=== PATIENT | male | born 1995 | race Caucasian/White ===

== ENCOUNTER 2021-07-19 19:04 | Emergency (ER) | payer SELFPAY ==
[2021-07-19 19:23] VITALS: BP 131/83; PULSE 115; RESP 18; TEMP 36.9; O2SAT 99; BMI 25.7
--- NOTE | 2021-07-19 19:27 | XR_ITS ---
PROCEDURE INFORMATION: Exam: XR Left Knee Exam date and time: 07/19/2021 7:27 PM Age: 25 years old Clinical indication: Pain; Knee; Left TECHNIQUE: Imaging protocol: XR Left knee. Views: 3 views. COMPARISON: No relevant prior studies available. FINDINGS: Bones/joints: Normal. Soft tissues: Normal. IMPRESSION: No acute findings.
[2021-07-19 20:11] VITALS: BP 131/83; PULSE 115; RESP 18; TEMP 36.9; O2SAT 99; BMI 25.7
[2021-07-19 20:48] VITALS: BP 131/83; PULSE 115; RESP 18; TEMP 36.9; O2SAT 99
--- NOTE | 2021-07-19 21:04 | HMH.EDUTC ---
[facility] [place] Impression: Other instability, left knee Left knee injury Qualifiers: Encounter type: initial encounter Qualified Code(s): S89.92XA - Unspecified injury of left lower leg, initial encounter Disposition: Home, Self-Care Condition on Discharge: Good Instructions: How to Use Crutches, DI for Knee Sprain, How to Use a Knee Immobilizer Additional Instructions: Rest the extremity, Elevate the extremity as tolerated while you are resting. Take ibuprofen for pain. I sent in a prescription to your pharmacy. Follow up with Dr. Webster (orthopedics). Your x-ray was normal, but with your symptoms lasting this long there is likely a soft tissue injury like a meniscus injury or ligament injury. I put in a referral but you need to call his office and schedule an appointment. Follow up with your regular doctor. GO TO THE ER FOR ANY WORSENING SYMPTOMS Prescriptions: Ibuprofen [Ibuprofen 800mg Tablet] 800 mg PO Q8HP PRN #30 tab PRN Reason: Moderate Pain Transmission Status: Received by [id number] Referrals: ProviderLeyda MD [Primary Care Provider] - Saul Webster MD [Staff Physician] - Forms: Work/School Release Time of Disposition: 21:18 Medical Decision Making - Medical Records Medical records reviewed: No: I reviewed the patient's medical records. - Jay Inquiry Pt receiving controlled substance: No Vital Signs: 07/19/21 19:23 07/19/21 20:11 07/19/21 20:48 Temperature 98.4 F 98.4 F 98.4 F Temperature Source Oral Oral Pulse Rate 115 H Pulse Rate [Right] 115 H 115 H Respiratory Rate 18 18 18 Blood Pressure 131/83 Blood Pressure [Right Arm] 131/83 131/83 Blood Pressure Mean [Right Arm] 99 99 Blood Pressure Source [Right Arm] Automatic Cuff Blood Pressure Position [Right Arm] Sitting 02 Sat by Pulse Oximetry 99 99 Oxygen Delivery Method Room Air - Radiology Data #1 Image(s): Knee Image Reviewed: Yes I reviewed the patient's radiology image, Yes I have reviewed radiologist's interpretation Preliminary Findings: Normal/NAD, No Fracture Seen PROCEDURE INFORMATION: Exam: XR Left Knee Exam date and time: 07/19/2021 7:27 PM Age: 25 years old Clinical indication: Pain; Knee; Left TECHNIQUE: Imaging protocol: XR Left knee. Views: 3 views. COMPARISON: No relevant prior studies available. FINDINGS: Bones/joints: Normal. Soft tissues: Normal. IMPRESSION: No acute findings. [facility] [place] HPI - General Stated complaint: AO 06/21 injured L knee Time Seen by Provider: 07/19/21 21:04 Mode of Arrival: Ambulatory Source of Information: Patient Limitations: No Limitations Description of Symptoms (Recalled from Triage Doc. by RN): PATIENT C/O LEFT KNEE PAIN AFTER FALLING A MONTH AGO HEENT Symptoms (Recalled from RN notes): No Resp Symptoms (Recalled from RN notes): No Skin Symptoms (Recalled from RN notes): No MS Symptoms (Recalled from RN notes): Yes Functional Status (Recalled from RN notes): WNL - History of Present Illness Provider Complaint: He states that approx 1 month ago he fell and twisted his left knee. Since then he has had left knee pain and swelling. The symptoms wax and wane, but they never get completely better. His knee has felt unstable at times also. - Related Data Previous Rx's Medication Instructions Recorded Ibuprofen [Ibuprofen 800mg 800 mg PO Q8HP PRN #30 tab 07/19/21 Tablet] Allergies Allergy/AdvReac Type Severity Reaction Status Date / Time No Known Allergies Allergy Verified 07/19/21 20:14 - Worker's Comp Is this a Worker's Comp case?: No [facility] History - Hepatitis A Screen Drug use history?: No High risk sexual behaviors?: No History of sexually transmitted infection?: No Currently employed?: No Childcare worker?: No Do you have indoor plumbing?: Yes Do you have electricity?: Yes Atte
== END 2021-07-19 21:26 | disposition home or self-care (01) ==
PROVIDERS: Emergency Provider Nurse Practitioner Family
DX: S89.92XA Unspecified injury of left lower leg, initial encounter (principal); W01.0XXA Fall on same level from slipping, tripping and stumbling without subsequent striking against object, initial encounter; Y92.019 Unspecified place in single-family (private) house as the place of occurrence of the external cause
CPT/HCPCS: 29505; 73562; 99212; G0463

== ENCOUNTER 2025-02-25 17:44 | Emergency (ER) | payer SELFPAY ==
[2025-02-25] VITALS (13 sets, daily range): BP systolic 136–192; BP diastolic 82–104; PULSE 72–102; RESP 16–18; TEMP 36.8; O2SAT 95–98; BMI 32.1
--- NOTE | 2025-02-25 18:23 | ED_ITS ---
<Statement entered by Ajit Leon MD - 02/25/25 23:33> Ajit Leon MD: I was consulted by the SILAS, and we discussed the complexity of the problems being addressed. I approved the treatment and management plan for this patient's care in the emergency department, thus performing a substantive portion of the medical decision making. Discharge Plan Disposition Patient Disposition: Left Against Medical Advice Condition: Fair Prescriptions Prescriptions: New doxycycline hyclate 100 mg capsule 100 mg PO BID 10 Days Qty: 20 0RF No Action ibuprofen 800 MG tablet 800 mg PO Q8HP PRN (Reason: Moderate Pain) Qty: 30 0RF Referrals Follow up/Referrals: Live Vines MD [Staff Physician, Urology] - See instructions Dev Vaca DO [Staff Physician, Family Practice] - See instructions Provider,MD Leyda [Primary Care Provider, Medical] - See instructions Activity Restrictions/Add. Instructions Additional Instructions/Restrictions: Please return to the emergency department with any worsening signs or symptoms. Please follow-up with primary care doctor or urologist for ultrasound of your scrotum in the upcoming days. Please take your antibiotic medication as prescribed. Clinical Impressions Clinical Impression: Inguinal lymphadenopathy, Hydrocele in adult Instructions Patient Instructions: DI for Lymphadenopathy, DI for Hydrocele in Adults Print Language Print Language: Thai Discharge ED Provider: Ajit Leon General Adult HPI General Chief complaint: PAIN Stated complaint: knot in groin area ,fever,sore Time Seen by Provider: 02/25/25 18:23 Mode of Arrival: Ambulatory Source of Information: Patient Description of Symptoms (Recalled from ER Triage Doc. by RN): Pt noticed pain in his groin area yesterday and felt a lump on the left side of his groin. History of Present Illness HPI narrative: 29-year-old male presents the emergency department accompanied by significant other for left inguinal pain, concern for area that is swollen , patient states he noticed this 2 days ago when he was in the shower , denies any trauma or injury per history, patient described it is sore, denies any redness around the area, does state that he does have some pain/pressure when he coughs , denies any fever, does admit to subjective chills, denies any chest pain shortness of breath, nausea vomiting constipation diarrhea no urinary type symptomatology, no urethral discharge, no redness genitourinary area, the opposite side is unaffected, denies any new sexual contacts or risky sexual behaviors, no testicular pain or swelling. Patient is a current everyday smoker (vapes), admits to occasional marijuana use and occasional alcohol use. Other past medical history consistent with GERD initial triage vitals noted for tachycardia at 102 bpm otherwise unremarkable. Please note that above description of symptoms, in this electronic medical record under categorization of recalled from ER triage doctor by RN are reflective of an initial nursing assessment, however, is not reflective of my full history and physical exam that was personally taken and clarified. Consequentially, this preceding description of symptoms, which may include the patient's categorized chief complaint in the EMR, do not reflect my personal clinical impression, and the ultimate description of history of present illness and patient stated complaints should be deferred to this section of the note. Unless stated otherwise or congruent with this section of the note, additional signs, symptoms, or incongruence should be interpreted as inaccurate with my clinical impression. Onset (ago): day(s) Related Data Previous Rx's ?Medication ?Instructions ?Recorded ibuprofen 800 mg tablet 800 mg PO Q8HP PRN Moderate Pain 07/19/21 #30 tabs doxycycline hyclate 100 mg capsule 100 mg PO BID 10 da ys #20 caps 02/25/25 Allergies Allergy/AdvReac Type Severity Reaction Status Date / Time No Known Allergies Allergy Verified 07/23/21 09:42 [facility] Disclaimer: The information contained in this section may have been updated after the patient was seen, as this information can be updated by other users. Social History Smoking Status: Current every day smoker alcohol intake: never current occupational status: employed Travel in the last 8 weeks?: None Have you lived/traveled outside [place] in past 30 days?: No Contact w/someone who lives/traveled outside [place] past 30 days?: No Exposure to someone with infectious disease in past 14 days?: No Do you have a fever (greater than 100.4 F or 38 C)?: No Have you tested positive for COVID-19?: No Exposed to someone with COVID-19 in past 14 days?: No Do you have a sore throat?: No Do you have a cough?: No Do you have any weakness?: No Do you have any diarrhea?: No Are you experiencing any unusual bleeding?: No Do you have any muscle aches/pain?: No Do you have any abdominal pain?: No Are you experiencing loss of taste or smell?: No Other Medical History Have you received the Pneumonia Vaccine: No ROS Obtained: Yes All systems reviewed & no additional complaints except as documented Physical Exam General General appearance: alert and in no apparent distress Head Head exam: atraumatic and normocephalic Eye Eye exam: Present PERRL and EOMI ENT ENT exam: Present mucous membranes moist Neck Neck exam: Present normal inspection Chest Chest inspection: Present normal inspection and symmetric chest wall rise Respiratory Respiratory exam: Present normal lung sounds bilaterally; Absent respiratory distress Cardiovascular Cardiovascular exam: Present regular rate and normal rhythm Abdominal Exam Abdominal exam: Present soft; Absent tenderness, guarding or rebound exam: Present normal testicular lie and other (Lymphadenopathy/prominent area in the inguinal lymphatic chain, with minimal pain palpation); Absent testicular tenderness, urethral discharge or scrotal swelling Extremities Exam Extremities exam: Present normal inspection Neurological Exam Neurological exam: Present alert and oriented X3 Psychiatric Psychiatric exam: Present normal affect Skin Skin exam: Present warm and dry Lymphatic Lymphatic Findings: L inguinal node tender and L inguinal node enlarged Medical Decision Making Medical Records Medical records reviewed: Yes I reviewed the patient's medical records. Screening: Per USPSTF and CDC recommendations, given the prevalence of disease in our region, it is our hospital?s policy to screen for HIV and viral Hepatitis for all patients aged 18 and over and those with ongoing risk factors. Jay Inquiry Pt receiving controlled substance: No Jay was queried for this patient: No Vital Signs: 02/25/25 18:06 02/25/25 19:19 02/25/25 19:30 Temperature 98.3 F Temperature Source Oral Pulse Rate 92 H 81 Pulse Rate [Right] 102 H Respiratory Rate 18 Blood Pressure Blood Pressure [Right Arm] 192/103 H Blood Pressure Mean Blood Pressure Mean [Right Arm] 132 Blood Pressure Source [Right Arm] Manual Cuff/ Doppler Blood Pressure Position [Right Arm] Sitting 02 Sat by Pulse Oximetry 98 95 96 Oxygen Delivery Method Room Air 02/25/25 19:30 02/25/25 19:45 02/25/25 20:00 Temperature Temperature Source Pulse Rate 85 82 Pulse Rate [Right] Respiratory Rate Blood Pressure 137/97 H Blood Pressure [Right Arm] Blood Pressure Mean 105 Blood Pressure Mean [Right Arm] Blood Pressure Source [Right Arm] Blood Pressure Position [Right Arm] 02 Sat by Pulse Oximetry 96 97 Oxygen Delivery Method 02/25/25 20:01 02/25/25 20:01 02/25/25 20:15 Temperature Temperature Source Pulse Rate 77 89 Pulse Rate [Right] Respiratory Rate Blood Pressure 145/93 H Blood Pressure [Right Arm] Blood Pressure Mean 101 Blood Pressure Mean [Right Arm] Blood Pressure Source [Right Arm] Blood Pressure Position [Right Arm] 02 Sat by Pulse Oximetry 97 96 Oxygen Delivery Method 02/25/25 20:30 02/25/25 20:31 02/25/25 20:31 Temperature Temperature Source Pulse Rate 87 88 Pulse Rate [Right] Respiratory Rate Blood Pressure 136/82 Blood Pressure [Right Arm] Blood Pressure Mean 100 Blood Pressure Mean [Right Arm] Blood Pressure Source [Right Arm] Blood Pressure Position [Right Arm] 02 Sat by Pulse Oximetry 95 95 Oxygen Delivery Method 02/25/25 20:45 Temperature Temperature Source Pulse Rate 72 Pulse Rate [Right] Respiratory Rate Blood Pressure Blood Pressure [Right Arm] Blood Pressure Mean Blood Pressure Mean [Right Arm] Blood Pressure Source [Right Arm] Blood Pressure Position [Right Arm] 02 Sat by Pulse Oximetry 97 Oxygen Delivery Method Lab Data Lab results reviewed: Yes I reviewed the patient's lab results. Lab Results 02/25/25 18:35: WBC 9.6, RBC 5.14, Hgb 16.0, Hct 45.1, MCV 87.7, MCH 31.1, MCHC 35.5 H, RDW 12.1, Plt Count 377, MPV 9.3, Neut % (Auto) 64.6, Lymph % (Auto) 23.3, [place] % (Auto) 10.6 H, Eos % (Auto) 0.6, Baso % (Auto) 0.6, Neut # (Auto) 6.2, Lymph # (Auto) 2.2, [place] # (Auto) 1.0, Eos # (Auto) 0.1, Baso # (Auto) 0.1, Sodium 138, Potassium 3.5, Chloride 100, Carbon Dioxide 26, Anion Gap 15.5 H, BUN 11, Creatinine 1.00, Estimated Creat Clear 172, Estimated GFR 87, Est GFR ( Amer) 105, Glucose 86, Calcium 9.4, Total Bilirubin 0.8, AST 56, ALT 55, Alkaline Phosphatase 101, Total Protein 7.9, Albumin 4.4, Globulin 3.5 H, Albumin/Globulin Ratio 1.3 02/25/25 19:37: Urine Color Yellow, Urine Appearance Clear, Urine pH 6.5, Ur Specific [place] <= 1.005, Urine Protein Negative, Urine Glucose (UA) Negative, Urine Ketones Negative, Urine Blood Negative, Urine Nitrate Negative, Urine Bilirubin Negative, Urine Urobilinogen 0.2, Ur Leukocyte Esterase Negative, Urine RBC None, Urine WBC None, Ur Squamous Epith Cells None, Urine Bacteria None 02/25/25 18:35 02/25/25 18:35 Orders (Tests/Meds): ED MEDICATIONS Generic Name Dose Route Start Last Admin Trade Name Freq PRN Reason Stop Dose Admin Sodium Chloride 10 ml 02/25/25 18:48 02/25/25 18:49 Sodium Chloride 0.9% 10ml Syr (Rad Only) IV 03/27/25 18:47 10 ml NEEDED PRN Administration Maintain IV Site Discontinued Medications Generic Name Dose Route Start Last Admin Trade Name Freq PRN Reason Stop Dose Admin Ceftriaxone Sodium 500 mg 02/25/25 21:19 Ceftriaxone 500mg Vial IM 02/25/25 21:20 ONCE ONE Iopamidol 75 ml 02/25/25 18:48 02/25/25 18:49 Iopamidol-370 (76%);100ml Bottle IV 02/25/25 18:49 75 ml ONCE ONE Administration Lidocaine HCl 0 ml 02/25/25 21:19 Lidocaine 1% 5ml Pf Vial IM 02/25/25 21:20 ONCE ONE ORDERS Category Date Time Status CT abdomen pelvis w con Stat Cat Scan 02/25/25 18:28 Completed Complete Blood Count Auto Diff Stat Lab 02/25/25 18:35 Completed Comprehensive Metabolic Panel Stat Lab 02/25/25 18:35 Completed Urinalysis and Microscopic Stat Lab 02/25/25 19:37 Completed Urine Chlam/Gono/Trich ([facility]) Stat Lab 02/25/25 19:37 Received US scrotum [US Testicular] Stat Ultrasound 02/25/25 20:47 Ordered Medical Decision Narrative: 29-year-old male presents to the emergency department with left inguinal pain and swelling for 2 days, differential diagnose include but not limited to, lymphadenitis, inguinal lymphadenopathy, inguinal hernia, infection among others. I discussed this patient's case with the attending physician Dr. Leon Will obtain basic laboratory studies, CT ab pelvis with contrast, and urinalysis for further evaluation/characterization, gonorrhea chlamydia, trichomonas nucleic amplification. CBC is unremarkable CMP is unremarkable Urinalysis is unremarkable I reviewed the patient's CT abdomen pelvis with contrast along with corresponding radiologic report, multiple left inguinal and left iliac chain enlarged inflammatory nodes, largest measures 2.4 cm in diameter, findings could be related to infectious or inflammatory regional process versus neoplastic process recommend further evaluation scrotum with ultrasound small left hydrocele attention on recommended scrotal ultrasound. Thus will obtain scrotal ultrasound. I was notified by nursing staff at approximately 9:15 PM that the patient is refusing scrotal ultrasound and would just like to leave AGAINST MEDICAL ADVICE. I was over to talk to patient and at the bedside, patient tells me I am just tired of all this morning go home . I discussed with him all risks of leaving AGAINST MEDICAL ADVICE and refusing further testing such as missing critical diagnoses to include malignancy infection among others. Patient voiced understanding and agreement with the current plan to leave AGAINST MEDICAL ADVICE, both patient and family ember GCS 15 alert oriented. Will treat the patient prophylactically for lymphadenitis, with 500 mg IM ceftriaxone and 100 mg p.o. doxycycline twice daily for 10 days. Patient voiced understanding and agreement with current treatment plan/plan to leave AGAINST MEDICAL ADVICE. Patient was given strict ED return precautions and was recommend the patient get follow-up with scrotal ultrasound as outpatient. Patient once again voiced understanding. Critical Care Critical Care Time Critical Care Time: No
--- NOTE | 2025-02-25 18:28 | CT_ITS ---
PROCEDURE INFORMATION: Exam: CT Abdomen And Pelvis With Contrast Exam date and time: 02/25/2025 6:53 PM Age: 29 years old Clinical indication: Pain; Other: Groin; Additional info: Left inguinal/groin pain/swelling TECHNIQUE: Imaging protocol: Computed tomography of the abdomen and pelvis with contrast. Radiation optimization: All CT scans at this facility use at least one of these dose optimization techniques: automated exposure control; mA and/or kV adjustment per patient size (includes targeted exams where dose is matched to clinical indication); or iterative reconstruction. Contrast material: ISOVUE; Contrast volume: 75 ml; Contrast route: IV; COMPARISON: No relevant prior studies available. FINDINGS: Liver: Diffuse hypoattenuation of the liver compatible with mild hepatic steatosis. Gallbladder and biliary ducts: Normal. No calcified stones. No ductal dilation. Pancreas: Normal. No ductal dilation. Spleen: Normal. No splenomegaly. Adrenal glands: Normal. No mass. Kidneys and ureters: Normal. No hydronephrosis. Stomach and bowel: Unremarkable. No obstruction. No mucosal thickening. Appendix: No evidence of appendicitis. Intraperitoneal space: Unremarkable. No free air. No significant fluid collection. Vasculature: Unremarkable. No abdominal aortic aneurysm. Lymph nodes: Multiple left inguinal and left iliac chain enlarged inflammatory nodes largest measures 2.4 cm in diameter. Urinary bladder: Unremarkable as visualized. Reproductive: Small left hydrocele. Bones/joints: Moderate loss of intervertebral disc space with degenerative changes involving L5-S1. Soft tissues: Normal. IMPRESSION: 1. Multiple left inguinal and left iliac chain enlarged inflammatory nodes largest measures 2.4 cm in diameter. Findings could be related to infectious or inflammatory regional process versus neoplastic process. Recommend further evaluation of the scrotum with ultrasound. 2. Small left hydrocele. Attention on recommended scrotal ultrasound.
[2025-02-25 18:47] LABS: Hematocrit 45.1 % (42.0-52.0); Hemoglobin 16.0 g/dL (14.1-18.0); Immature Granulocytes % 0.3 %; Mean Corpuscular HGB Conc 35.5 g/dL (31.8-35.4); Mean Corpuscular Hemoglobin 31.1 pg (27.0-31.2); Mean Corpuscular Volume 87.7 fl (80-94); Nucleated Red Blood Cells % 0 %; Platelet Count 377 K/mm3 (142-424); Red Blood Count 5.14 M/mm3 (4.60-6.20); Red Cell Distribution Width-SD 39.2 fL; White Blood Count 9.6 K/mm3 (4.8-10.8)
[2025-02-25] MEDS: SODIUM CHLORIDE 0.9% 10ML SYR (RAD ONLY) 10 ML IV (18:49)
[2025-02-25] MEDS: IOPAMIDOL-370 (76%);100ML BOTTLE 75 ML IV (18:49)
[2025-02-25 19:04] LABS: Alanine Aminotransferase 55 U/L (12-78); Albumin Level 4.4 g/dl (3.5-5.0); Albumin/Globulin Ratio 1.3 (1.1-1.8); Alkaline Phosphatase 101 U/L (38-126); Anion Gap 15.5 mEq/L (5-15); Aspartate Amino Transferase 56 U/L (17-59); Bilirubin,Total 0.8 mg/dl (0.2-1.3); Blood Urea Nitrogen 11 mg/dl (9-20); Calcium 9.4 mg/dl (8.4-10.2); Carbon Dioxide 26 mmol/L (22.0-30.0); Chloride 100 mmol/L (98-107); Creatinine Clearance Estimated 172 mL/min (50-200); Creatinine,Serum 1.00 mg/dl (0.66-1.25); Estimated Glomerular Filt Rate 87 ml/min (>60); GFR (African American) 105 ML/MIN (>60); Globulin 3.5 g/dL (1.3-3.2); Glucose 86 mg/dl (74-100); Potassium 3.5 mmoL/L (3.5-5.1); Sodium 138 mmol/L (136-145); Total Protein,Serum 7.9 g/dl (6.3-8.2)
[2025-02-25 19:43] LABS: Microscopic, Urine URINE MICROSCOPIC (MICROSCOPIC)
[2025-02-25 19:45] LABS: Bilirubin,Urine Negative (Negative); Color,Urine YELLOW (Yellow); Glucose,Urine (UA) Negative (Negative); Ketones,Urine Negative (Negative); Leukocyte Esterase,Urine Negative (Negative); PH,Urine 6.5 (5.0-8.5); Protein,Urine Negative (Negative); Specific Gravity, Urine <= 1.005 (1.005-1.030); Urobilinogen,Urine 0.2 EU/dl (0.2)
[2025-02-25] MEDS: LIDOCAINE 1% 5ML PF VIAL IM (21:28)
--- NOTE | 2025-02-25 21:37 | PC.NURSE ---
2119- patient rang the call reid and this nurse entered the room. patient wished to speak to the doctor and no longer wanted to do the scrotal ultrasound and wished to leave with antibiotics. Tristian GONZALEZ notified.
== END 2025-02-25 21:38 | disposition left against medical advice (07) ==
PROVIDERS: Physician Assistant; Emergency Provider Emergency Medicine
DX: L04.8 Acute lymphadenitis of other sites (principal); N43.3 Hydrocele, unspecified; F17.210 Nicotine dependence, cigarettes, uncomplicated
CPT/HCPCS: 74177; 80053; 81001; 85025; 87491; 87591; 87661; 96372; 99284; 99285; J0696; J2003; Q9967